=== PATIENT | female | born 1980 | race Two or more races ===

== ENCOUNTER 2025-01-03 14:28 | Emergency (ER) | payer MEDICAID, SELFPAY ==
--- NOTE | 2025-01-03 14:31 | EKG_ITS ---
[facility] Test Date: 2025-01-03 Pat Name: OMID WINN Department: Room: - Gender: Female Market Relationship Manager: : 1980 Requested By: Jesse Jack (HEART NURSE) Order Number: [id number] Reading MD: Jesse Jack (HEART NURSE) Measurements Intervals [place] Rate: 82 P: 59 NJ: 155 QRS: 58 QRSD: 89 T: 50 QT: 366 QTc: 430 Interpretive Statements SINUS RHYTHM NONSPECIFIC T-WAVE ABNORMALITY No previous ECG available for comparison /store/S0/[id number]/ecg/[id number].pdf
[2025-01-03 14:34] VITALS: BP 147/82; PULSE 84; RESP 16; TEMP 36.8; O2SAT 99; BMI 21.2
--- NOTE | 2025-01-03 15:07 | XR_ITS ---
Examination: CT brain head without contrast. 2-D sagittal coronal reconstructions Date and time of exam:January 03, 2025 1556 hours INDICATIONS: Syncopal episode followed by fall today with injury to head, head pain CTDI: vol (mGy):15.9 DLP: (mGycm):986 Technique: Multiple CT axial sections of the brain have been obtained, 5 mm slice thickness. Contrast has not been administered. 2-D sagittal, coronal reconstructions have been obtained Low dose protocols were performed. One or more of the following dose reduction techniques were used; automated exposure control, adjustment of the mA and/or KV according to patient size, use of iterative reconstruction technique. Findings: No significant ventricular enlargement. Intra-axial or extra-axial hemorrhage density is not seen. No mass effect or midline shift Basal cisterns are not remarkable. Fourth ventricle is midline. Cranial vault intact. Impression: Negative for acute hemorrhage, mass effect or midline shift
--- NOTE | 2025-01-03 15:07 | XR_ITS ---
Examination: PA lateral chest 2 views FINDINGS: Upright PA and lateral chest 2 views Presented time: January 03, 2025 1621 hours INDICATION: Syncopal episode this morning FINDINGS: Normal heart size No aspiration pneumonia. Lungs are clear. Osseous structures are intact IMPRESSION: No active disease
--- NOTE | 2025-01-03 15:08 | PD.EDRME ---
Rapid Medical Screening Exam RME Arrival date/time: 01/03/25 14:28 44-year-old female presents the emergency department today stating that she did syncopal episode today patient reports laceration to her chin Chief Complaint: Syncope / Near Syncope Vital signs: Vital Signs Temperature 98.3 F 01/03/25 14:34 Pulse Rate 84 01/03/25 14:34 Respiratory Rate 16 01/03/25 14:34 Blood Pressure 147/82 H 01/03/25 14:34 Pulse Oximetry (%) 99 01/03/25 14:34 Oxygen Delivery Method Room Air 01/03/25 14:34
[2025-01-03 15:55] LABS: Basophils % (Auto) 0 % (0-2.5); Eosinophils # (Auto) 0.2 Thou/mm3 (0.0-0.5); Eosinophils % (Auto) 3 % (0-10); Hematocrit 34.3 % (36.0-46.0); Immature Granulocytes % (Auto) 0 % (0-0); Immature Granulocytes Auto 0.03 Thou/mm3 (0.00-0.00); Lymphocytes # (Auto) 1.3 Thou/mm3 (1.0-4.8); Lymphocytes % (Auto) 17 % (10-50); Mean Corpuscular Hemoglobin 32.5 pg (25.0-35.0); Mean Corpuscular Volume 93 fL (80-100); Monocytes # (Auto) 0.4 Thou/mm3 (0.0-0.8); Monocytes % (Auto) 5 % (0-12); Neutrophils # (Auto) 6.1 Thou/mm3 (1.8-7.7); Neutrophils % (Auto) 75 % (37-80); Nucleated Red Blood Cell % 0 /100 WBC (0); Platelet Count 174 Thou/mm3 (140-440); Red Blood Count 3.69 Miln/mm3 (4.00-5.20); White Blood Count 8.1 Thou/mm3 (3.6-11.0)
[2025-01-03 16:18] LABS: HCG,Qualitative Serum Negative
[2025-01-03 16:30] LABS: Amphetamine/Methamp Scrn,U Negative (Negative); Barbiturate Screen,Urine Negative (Negative); Benzodiazepines Screen,Urine Negative (Negative); Benzoylecgonine Screen, Ur Negative (Negative); Fentanyl Screen,Urine Negative (Negative); Opiate Screen,Urine Negative (Negative); THC Screen,Urine Negative (Negative)
[2025-01-03 16:31] LABS: Alanine Aminotransferase 9 U/L (10-49); Albumin, Serum 4.5 gm/dL (3.5-5.0); Alkaline Phosphatase 48 U/L (46-116); Anion Gap 6 (7-16); Aspartate Amino Transferase 15 U/L (0-34); BUN/Creatinine Ratio 18 Ratio (12-20); Bilirubin,Total 0.6 mg/dL (0.3-1.2); Blood Urea Nitrogen 14 mg/dL (9-23); Carbon Dioxide 27.5 mMol/L (20.0-31.0); Chloride 108 mMol/L (98-107); Creatinine (Component) 0.8 mg/dL (0.6-1.3); Estimated Creatinine Clearance 75.8 mL/min (>60); Free T4 (Free Thyroxine) 1.16 ng/dL (0.89-1.76); Globulin 2.3 gm/dL (2.3-3.5); Glucose 139 mg/dL (74-106); Osmolality,Calculated 283 (275-295); Potassium 3.7 mMol/L (3.4-5.1); Sodium 141 mMol/L (136-145); Thyroid Stimulating Hormone 2.29 uIU/mL (0.55-4.78); Total Protein 6.8 gm/dL (5.7-8.2); Troponin I < 0.002 ng/mL (0.0-0.045); eGFR > 60 See Note
--- NOTE | 2025-01-03 18:34 | PD.EDSYNC ---
ED Syncope RME/HPI General Chief Complaint: Syncope / Near Syncope Stated Complaint: SYNCOPE, LACERATION CHIN Time Seen by Provider: 01/03/25 18:33 Arrival date/time: 01/03/25 14:28 44 year old female present to emergency room with c/o of syncope episode causing chin laceration today. patient report was fasting which cause her to syncope. LOCATION : [place] SEVERITY: Symptoms are described as being severe with limitations on activities of daily living CONTEXT: The patient is unable to identify any inciting events. DURATION/TIMING: The symptoms started approximately 1 day ASSOCIATED SYMPTOMS: The patient is unable to identify any other associated symptoms. MODIFYING FACTORS: The patient is unable to identify any alleviating or aggravating symptoms. PERTINENT ROS: no fevers, no cough, denies any lower extremity edema and no unilateral swelling, no chest pain/shortness of breath no nausea,vomiting, diarrhea, no dizziness/headache no rash episode no abd/back pain REVIEW OF SYSTEMS: See History of Present Illness - with the exception of those mentioned in the history of present illness, all other systems reviewed and reported as negative GENERAL: In general the patient is awake, interactive, in an emergency department gurney. HEAD/EYES/EARS/NOSE/THROAT: + chin laceration mucus membranes are moist, anicteric, palpebral conjunctiva is pink, trachea is midline. CARDIOVASCULAR: regular rate and regular rhythm, no murmurs, heart sounds are not distant, strong pulses in all four extremities that are equal and symmetric bilateral upper and lower extremities, normal capillary refill. CHEST/PULMONARY: normal chest rise and fall, good air movement, clear to auscultation bilaterally, normal inspiratory to expiratory ratios without evidence of respiratory distress. NECK: No midline/Paraspinal tenderness, no step off ROM/Strenght intact No Kernig and bruzinski sign. No trauma ABDOMEN: soft, not tender, no masses appreciated BACK: normal range of motion without pain. NEUROLOGICAL: cranio-facial features are symmetric, moves all four extremities equally without obvious limitations or weakness. EXTREMITY: no tenderness to palpation over the long bones or large joints of the bilateral upper and lower extremities, no joint swelling, no joint erythema, no signs of trauma, no unilateral leg swelling and no peripheral edema. SKIN: warm, dry, well-perfused, no jaundice, no rash, no telangiectasias or petechia. PSYCH: calm, cooperative, no evidence of psychosis or agitation RME / HPI RME / HPI narrative: 01/03/25 14:28 44-year-old female presents the emergency department today stating that she did syncopal episode today patient reports laceration to her chin Related Data Home Medications ?Medication ?Instructions ?Recorded ?Confirmed vit no.95-ferrous 1 tab PO QDAY 11/12/18 11/12/18 fumarate 28 mg-folic acid 800 mcg tablet () Allergies Allergy/AdvReac Type Severity Reaction Status Date / Time No Known Allergies Allergy Uncoded 01/03/25 14:31 Course Course Course Narrative: Patient is admitted to the Emergency Department and evaluated. Patient appears well, is non-toxic and well hydrated. The wound dermbond Patient is given wound care and follow up instructions. Quality Measures none Orders Category Date Time Status EKG (ED ONLY) *Do not use* NOW Care 01/03/25 14:[address] head/brain wo con Stat Exams 01/03/25 15:07 Completed EKG (ED Only) Stat Exams 01/03/25 14:31 Draft XR chest 2V Stat Exams 01/03/25 15:07 Completed CBC Stat Lab 01/03/25 15:45 Completed Comprehensive Metabolic Panel Stat Lab 01/03/25 15:48 Completed Drug Screen,Urine Stat Lab 01/03/25 15:56 Completed Free T4 (Free Thyroxine) Stat Lab 01/03/25 15:48 Completed HCG,Qualitative Serum Stat Lab 01/03/25 15:48 Completed TSH [Thyroid Stimulating Hormone] Stat Lab 01/03/25 15:48 Completed Troponin I Stat Lab 01/03/25 15:48 Completed Vital Signs Vital signs: Vital Signs Temperature 98.3 F 01/03/25 14:34 Pulse Rate 84 01/03/25 14:34 Respiratory Rate 16 01/03/25 14:34 Blood Pressure 147/82 H 01/03/25 14:34 Pulse Oximetry (%) 99 01/03/25 14:34 Oxygen Delivery Method Room Air 01/03/25 14:34 Procedures -ED EKG Interpretation #1: Date of EK01/03/25 Time of EK:34 Interpretation: Reviewed by me EKG Impression: Normal sinus rhythm, No acute ST-T changes, No ectopy, No ischemic changes, Normal QRS and Normal intervals Laceration Laceration 1: Site: face Size (cm): 1 Description: linear Depth: simple, single layer Pre-repair: wound explored, irrigated extensively and deep structures intact Skin layer closed with: other (derma hinds, sterile strip (6x) ) Syncope Patient data External records reviewed:: [facility] previous records Clinical information provided by:: patient Social determinants that could affect healthcare access:: none Patient has the following chronic illnesses:: as stated in chart How is presenting disease/condition affected by chronic disease/condition?: uneffected by Evaluation data The following diagnostics were reviewed and interpreted by me:: lab results, radiology exam(s) and EKG tracing(s) Lab and/or radiology exams considered but not ordered:: n/a Interpretation Summary: labs, cxt, ct within normal limits Medications / Prescriptions Medications or Prescriptions considered but not ordered:: n.a Medication administrations:: n/a Consultations Consultation(s) initiated? (list below): No Diagnosis Syncope Differential Diagnosis: syncope due to orthostatic hypotension, vasovagal syncope, subarachnoid hemorrhage and dehydration Most likely diagnosis given after review of the tests above:: chin laceration Admission Indicated Admission indicated?: not indicated Admission Request Was there a request for admission?: No Disposition Plan Disposition Plan: Discharge Discharge Attestation Discharge Attestation: The patient and all family members were given an opportunity to ask questions and understood the discharge instructions. Discharge instructions specifically effects, indications for sooner follow up or return to the emergency department, and the expected course of current diagnosis. Patient condition: Stable Discharge Plan Plan Patient Disposition: HOME (Self Care) Prescriptions/Referrals Prescriptions/Med Rec: No Action PNV cmb#95-ferrous fumarate-FA [] 28 mg iron- 800 mcg Tablet 1 tab PO QDAY Referrals: Joseph Verdugo MD [Primary Care Provider] - In 1 week Problem List Clinical Impression: Chin laceration Patient/Caregiver Discharge Instructions Education Materials: ED Laceration, Face: Skin Glue Print Language: Tajik Stand Alone Forms: Sara Award Info., Patient Portal Info Letter
== END 2025-01-03 18:50 | disposition home or self-care (01) ==
PROVIDERS: Nurse Practitioner Primary Care; Emergency Provider Family Medicine; PCP Family Medicine
DX: S01.81XA Laceration without foreign body of other part of head, initial encounter (principal); R94.31 Abnormal electrocardiogram [ECG] [EKG]; X58.XXXA Exposure to other specified factors, initial encounter
CPT/HCPCS: 12011; 36415; 70450; 71046; 80053; 80307; 84439; 84443; 84484; 84703; 85025; 93005; 99284